=== PATIENT | male | born 1950 | race Caucasian/White ===

== ENCOUNTER → 2021-11-06 | Outpatient (CLI) | payer MEDICARE ==
[~2021-11-06] MED LIST: REGADENOSON 0.4 MG/5 ML PF SYG IVP SCH
== END | disposition home or self-care (01) ==
LOC: OIH 08:06
PROVIDERS: ATTEND Internal Medicine Cardiovascular Disease
DX: I10 Essential (primary) hypertension (principal); E78.5 Hyperlipidemia, unspecified; R94.39 Abnormal result of other cardiovascular function study; Z95.5 Presence of coronary angioplasty implant and graft
CPT/HCPCS: 78452; 93017; 96374; A9500 ×2; J2785

== ENCOUNTER 2022-01-22 11:52 | Day surgery (SDC) | payer MEDICARE ==
[2022-01-18 12:24] LABS: BASOPHILS % (AUTO) 0.5 % (0.0-5.0); EOSINOPHILS % (AUTO) 2.9 % (0.0-8.0); HEMATOCRIT 40.5 % (42-54); LYMPHOCYTES % (AUTO) 25.6 % (21.0-51.0); MEAN CORPUSCULAR HEMOGLOBIN 28.9 pg (27.0-33.0); MEAN CORPUSCULAR HGB CONC 32.6 g/dL (32.0-36.0); MEAN CORPUSCULAR VOLUME 88.6 fL (79-99); MONOCYTES % (AUTO) 8.9 % (3.0-13.0); NEUTROPHILS % (AUTO) 61.6 % (40.0-77.0); PLATELET COUNT (AUTO) 160 K/uL (130-400); RED BLOOD CELL COUNT(AUTO) 4.57 MIL/uL (4.50-6.20); WHITE BLOOD COUNT (AUTO) 6.3 K/uL (4.8-10.8)
[2022-01-18 12:31] LABS: CREATININE 1.1 mg/dL (0.5-1.5); POTASSIUM 4.7 mmol/L (3.5-5.1)
[2022-01-19 10:00] VITALS: BP 197/78
[2022-01-22] VITALS (16 sets, daily range): BP systolic 142–161; BP diastolic 68–80
[~2022-01-22] VITALS: Ht 170.2 cm; Wt 101.6 kg
[~2022-01-22 11:52] MED LIST changes: +AEC81 PO; +CARV12.511 PO; +CEFTRIAXONE 1G VIAL IVP SCH; +EZET10TA48 PO; +FINA5TAB41 PO; +LOSA25TA41 PO; -REGADENOSON 0.4 MG/5 ML PF SYG IVP SCH; +ROSU40TA21 PO; +TADA5TAB13 PO; +TAMS-1 PO
[2022-01-22] MEDS ORDERED: LACTATED RINGERS 1000ML 1,000 ML IV ONE (12:07)
[2022-01-22] MEDS ORDERED: OPIUM/BELLADONNA ALKALOIDS 1 EACH SUPP.RECT RC ONE (14:37)
[2022-01-22] MEDS ORDERED: PHENAZOPYRIDINE HCL 200 MG TABLET ONE (16:06)
[2022-01-22] MEDS ORDERED: ACETAMINOPHEN WITH CODEINE 1 TAB TAB ONE (16:35)
[2022-01-22] MEDS ORDERED: ACETAMINOPHEN WITH CODEINE 1 TAB TAB PO SCH (17:00)
== END 2022-01-22 17:08 ==
LOC: DAH 11:52 → EDSTATUS 12:36 → DAH 17:08
PROVIDERS: ATTEND Urology
DX: N40.1 Benign prostatic hyperplasia with lower urinary tract symptoms (principal); R35.1 Nocturia; I10 Essential (primary) hypertension; E78.5 Hyperlipidemia, unspecified; I25.10 Atherosclerotic heart disease of native coronary artery without angina pectoris; Z87.891 Personal history of nicotine dependence; Z79.899 Other long term (current) drug therapy; Z20.822 Contact with and (suspected) exposure to COVID-19
CPT/HCPCS: 36415; 52648; 80048; 85025; 87635; 93005; A4215; A4221; A4222; A4223; A4340; A4354; A4358; A4510; A4600; A4663; A5113; A6260; C9803; J0696; J7120 ×2